=== PATIENT | female | born 2000 | race Two or more races ===

== ENCOUNTER 2021-07-30 22:04 | Emergency (ER) | payer MEDICAID, SELFPAY ==
--- NOTE | ~2021-07-30 | CT_ITS ---
EXAMINATION: CT HEAD WITHOUT CONTRAST CLINICAL INFORMATION: New onset of seizure COMPARISON: None TECHNIQUE: Contiguous axial imaging was performed from the skull base to vertex without intravenous administration of contrast. Coronal and sagittal reformatted images performed at the CT scanner This CT examination was performed using dose optimization techniques as appropriate, variously including the following: *Automated exposure control *Adjustment of mA and/or kV according to patient size (this includes techniques or standardized protocols for targeted exams where dose is matched to indication/reason for exam; i.e. extremities or head) *Use of iterative reconstruction technique DLP: 607 mGy-cm FINDINGS: There is no evidence of acute intracranial hemorrhage or territorial infarction. No abnormal mass effect or midline shift is seen. Marina to white matter differentiation is well preserved. No extra-axial fluid collections are identified. The ventricles are normal in size. There is no abnormal attenuation within the brain parenchyma. The osseous structures and soft tissues are normal. The mastoid air cells and visualized portions of the paranasal sinuses are well aerated. CT/CT head/brain wo con IMPRESSION: No acute intracranial pathology.
[2021-07-30 22:10] VITALS: BP 115/62; PULSE 123; RESP 16; TEMP 37.1; O2SAT 99; BMI 22.8
--- NOTE | 2021-07-30 22:22 | ED_ITS ---
HPI - Syncope General Chief Complaint: Syncope Stated Complaint: SYNCOPE, ?SEIZURE Time Seen by Provider: 07/30/21 22:22 Source: patient and family Limitations: no limitations History of Present Illness HPI narrative: Patient otherwise healthy in no significant past medical history was coming home after watching a movie getting a piggyback ride as she had ankle sprain then she does not remember what happened. According to her friend jenna veliz had a seizure with tonic clonic activity of all 4 extremities clenching of the teeth , eyes uprolled lasted for few seconds patient was incontinent prior to the episode patient was feeling funny blurred vision. Patient does not remember the event was confused when she woke up at this time patient denies any complaints. Patient denies any sleep deprivation no use of drugs no headache was born full-term no recent head injury Related Data Allergies Allergy/AdvReac Type Severity Reaction Status Date / Time No Known Allergies Allergy Unverified 06/20/20 17:25 Review of Systems Review of Systems: Yes all other systems are reviewed and are negative [facility] Social History Social History Advance Directives: No Advance Directives Information Provided: Yes Patient : No Physical Exam Vital Signs: Vital Signs: Last Vital Signs Temp 98.7 F 07/30/21 22:10 Pulse 123 H 07/30/21 22:10 Resp 16 07/30/21 22:10 BP 115/62 07/30/21 22:10 Pulse Ox 99 07/30/21 22:10 Body Mass Index 22.8 Appearance: Alert. Oriented X3. No acute distress. Eyes: PERRLA, No Nystagmus ENT: Pharynx normal. Oral Mucosa moist Neck: Normal inspection. Neck supple. CVS: Normal heart rate and rhythm. Pulses normal. Respiratory: No respiratory distress. Equal air entry bilateral, no wheezing/rales/rhonchi Abdomen: Soft and nontender. Bowel sounds are present, no mass palpable, no CVA tenderness Skin: Skin warm and dry. Normal skin color. Normal skin turgor. Extremities: No lower extremity edema. No calf tenderness Neuro: Oriented X 3. No motor deficit. No sensory deficit.No cerebellar signs , cranial nerves II-XII intact MDM - Syncope MDM Narrative Medical decision making narrative: Patient with new onset tonic clonic seizure etiology unknown workup is negative including CT head. Prolactin level was sent. Patient advised to follow neurology/PCP Lab Data Attestation: I reviewed the patient's lab results. Result diagrams: 07/30/21 22:58 07/30/21 22:58 Labs: Lab Results 07/30/21 07/30/21 07/30/21 Range/Units 22:58 22:58 22:58 WBC 13.9 H (4.8-10.8) X10*3/uL RBC 4.06 L (4.20-5.50) X10*6/uL Hgb 12.2 (12.0-16.0) g/dl Hct 36.7 L (37-47) % MCV 90.4 (80-98) fL MCH 30.0 (27.0-33.0) pg MCHC 33.2 (31.0-35.0) g/dl RDW 12.7 (11.0-16.0) % Plt Count 279 (160-400) X10*3/uL MPV 10.7 (9.4-12.3) fL Immature Gran % (Auto) 0.3 (0.0-0.4) % Neut % (Auto) 77.0 H (45-73) % Lymph % (Auto) 11.8 L (20-40) % [place] % (Auto) 7.6 (2-11) % Eos % (Auto) 2.9 (0-4) % Baso % (Auto) 0.4 (0-2) % Lymph # (Auto) 1.6 (1.2-4.9) X10*3/uL [place] # (Auto) 1.1 (0.1-1.2) X10*3/uL Eos # (Auto) 0.4 (0.0-0.4) X10*3/uL Baso # (Auto) 0.1 (0.0-0.2) X10*3/uL Abs Immat Gran (auto) 0.04 H (0.00-0.03) X10*3/uL Absolute Neuts (auto) 10.7 H (2.0-8.3) X10*3/uL Absolute Nucleated RBC 0.000 (0.0-0.012) X10*3/uL Nucleated RBC % (auto) 0.0 (0.0-0.2) /100WBC Sodium 138 (135-145) mmol/L Potassium 4.1 (3.3-5.1) mmol/L Chloride 109 H (96-108) mmol/L Carbon Dioxide 21 L (22-29) mmol/L Anion Gap 12 (12-20) BUN 10 (9-16) mg/dL Creatinine 0.67 (0.5-1.4) mg/dL Estim Creat Clear Calc 91.3 Estimated GFR > 60 Random Glucose 117 H (60-115) mg/dL Calcium 8.6 (8.4-10.2) mg/dL Urine Color YELLOW Urine Appearance CLEAR Urine pH 6.0 (5.0-8.0) Ur Specific [place] >= 1.030 H (1.005-1.025) Urine Protein TRACE (NEG-TRACE) MG/DL Urine Glucose (UA) NEG (NEG) MG/DL Urine Ketones NEG (NEG) MG/DL Urine Blood NEG (NEG) Urine Nitrite NEG (NEG) Ur Leukocyte Esterase NEG (NEG) Urine Test (NEGATIVE) 07/30/21 Range/Units 22:58 WBC (4.8-10.8) X10*3/uL RBC (4.20-5.50) X10*6/uL Hgb (12.0-16.0) g/dl Hct (37-47) % MCV (80-98) fL MCH (27.0-33.0) pg MCHC (31.0-35.0) g/dl RDW (11.0-16.0) % Plt Count (160-400) X10*3/uL MPV (9.4-12.3) fL Immature Gran % (Auto) (0.0-0.4) % Neut % (Auto) (45-73) % Lymph % (Auto) (20-40) % [place] % (Auto) (2-11) % Eos % (Auto) (0-4) % Baso % (Auto) (0-2) % Lymph # (Auto) (1.2-4.9) X10*3/uL [place] # (Auto) (0.1-1.2) X10*3/uL Eos # (Auto) (0.0-0.4) X10*3/uL Baso # (Auto) (0.0-0.2) X10*3/uL Abs Immat Gran (auto) (0.00-0.03) X10*3/uL Absolute Neuts (auto) (2.0-8.3) X10*3/uL Absolute Nucleated RBC (0.0-0.012) X10*3/uL Nucleated RBC % (auto) (0.0-0.2) /100WBC Sodium (135-145) mmol/L Potassium (3.3-5.1) mmol/L Chloride (96-108) mmol/L Carbon Dioxide (22-29) mmol/L Anion Gap (12-20) BUN (9-16) mg/dL Creatinine (0.5-1.4) mg/dL Estim Creat Clear Calc Estimated GFR Random Glucose (60-115) mg/dL Calcium (8.4-10.2) mg/dL Urine Color Urine Appearance Urine pH (5.0-8.0) Ur Specific [place] (1.005-1.025) Urine Protein (NEG-TRACE) MG/DL Urine Glucose (UA) (NEG) MG/DL Urine Ketones (NEG) MG/DL Urine Blood (NEG) Urine Nitrite (NEG) Ur Leukocyte Esterase (NEG) Urine Test NEGATIVE (NEGATIVE) ECG Data Attestation: I personally reviewed and interpreted this ECG as follows: Interpretation: Sinus tachycardia heart rate 118 beats per minute prabhakar double normal axis no acute ischemic changes Discharge Plan Discharge Clinical Impression: New onset seizure Patient Disposition: Home, Self-Care Instructions: New-Onset Seizure in Adults (ED) Additional Instructions: Avoid sleep deprivation Do not drive until final diagnosis made Cautious as advised Follow-up with neurologist/PCP for further evaluation and treatment Referrals: Manjinder Copeland MD [Physician] - 2 days
--- NOTE | 2021-07-30 22:32 | ECG_ITS ---
Test Reason : SYNCOPE Blood Pressure : / mmHG Vent. Rate : 118 BPM Atrial Rate : 118 BPM P-R Int : 210 ms QRS Dur : 074 ms QT Int : 288 ms P-R-T Axes : 057 058 034 degrees QTc Int : 403 ms Sinus tachycardia with 1st degree A-V block Possible Left atrial enlargement RSR' or QR pattern in V1 suggests right ventricular conduction delay Nonspecific ST abnormality Inferior leads Abnormal ECG No previous ECGs available Referred By: Nicola Palomares Electronically Signed By:NEGRITO LLOYD MD
[2021-07-30 23:01] VITALS: PULSE 117
[2021-07-30 23:03] LABS: MANUAL DIFF FLAG NO
[2021-07-30 23:04] LABS: Basophils Absolute Auto 0.1 X10*3/uL (0.0-0.2); Basophils Percent Auto 0.4 % (0-2); Eosinophils Absolute Auto 0.4 X10*3/uL (0.0-0.4); Eosinophils Percent Auto 2.9 % (0-4); Hematocrit 36.7 % (37-47); Hemoglobin 12.2 g/dl (12.0-16.0); Imm Gran Abs Auto 0.04 X10*3/uL (0.00-0.03); Imm Gran Pct Auto 0.3 % (0.0-0.4); Lymphocytes Absolute Auto 1.6 X10*3/uL (1.2-4.9); Lymphocytes Percent Auto 11.8 % (20-40); Mean Corpuscular HGB Conc 33.2 g/dl (31.0-35.0); Mean Corpuscular Volume 90.4 fL (80-98); Mean Platelet Volume 10.7 fL (9.4-12.3); Monocytes Absolute Auto 1.1 X10*3/uL (0.1-1.2); Monocytes Percent Auto 7.6 % (2-11); Neutrophils Absolute Auto 10.7 X10*3/uL (2.0-8.3); Platelet Count 279 X10*3/uL (160-400); Red Blood Count 4.06 X10*6/uL (4.20-5.50); Red Cell Distribution Width 12.7 % (11.0-16.0); White Blood Count 13.9 X10*3/uL (4.8-10.8)
[2021-07-30 23:05] LABS: Appearance Urine CLEAR; Color Urine YELLOW; Glucose Urine UA NEG (NEG); Leukocyte Esterase Urine NEG (NEG); Nitrite Urine NEG (NEG); Specific Gravity - Urine >= 1.030 (1.005-1.025); Urine Blood NEG (NEG); Urine Ketones NEG (NEG); Urine Protein TRACE MG/DL (NEG-TRACE)
[2021-07-30 23:07] LABS: UPreg QC Valid YES; Urine Pregnancy NEGATIVE (NEGATIVE)
[2021-07-30 23:08] LABS: UACC Culture Trigger NO
[2021-07-30 23:21] LABS: Anion Gap 12 (12-20); Blood Urea Nitrogen 10 mg/dL (9-16); Calcium 8.6 mg/dL (8.4-10.2); Carbon Dioxide 21 mmol/L (22-29); Chloride 109 mmol/L (96-108); Creatinine Clr Calc Pharmacy 91.3; Estimated Glomerular Filt Rate > 60; Glucose Random 117 mg/dL (60-115); Potassium 4.1 mmol/L (3.3-5.1); Sodium 138 mmol/L (135-145)
[2021-07-30 23:51] VITALS: BP 95/51; PULSE 82; RESP 18; TEMP 36.8; O2SAT 99
[2021-08-02 02:02] LABS: Prolactin 36.6 ng/mL
== END 2021-07-30 23:55 | disposition home or self-care (01) ==
PROVIDERS: Emergency Provider Internal Medicine
DX: R56.9 Unspecified convulsions (principal)
CPT/HCPCS: 36415; 70450; 80048; 81003; 81025; 84146; 85025; 93005; 99284

== ENCOUNTER → 2021-10-24 12:58 | Outpatient (REF) | payer MEDICAID, SELFPAY ==
--- NOTE | 2021-10-24 13:02 | ECG_ITS ---
Hook-up date: 2021-10-24 13:12:00 Duration: 47:59:00 Test Indications: TACHYCARDIA Medications: 074371 QRS complexes 3 Ventricular ectopics which represent <1 % of total QRS comp. * Supraventricular ectopics which represent % of total QRS comp. * Paced QRS complexs which represent % of total QRS comp. VENTRICULAR ECTOPY 3 Isolated 0 Bigeminal Cycles 0 Couplets 0 Runs 0 Beats in Runs * Beats LONGEST at * BPM at :: -- * Beats FASTEST at * BPM at :: -- SUPRAVENTRICULAR ECTOPY * Isolated * Couplets * Runs * Beats in Runs * Beats LONGEST at * BPM at :: -- * Beats FASTEST at * BPM at :: -- HEART RATES 47 MIN at 02:39:05 2021-10-25 85 AVG 189 MAX at 22:09:35 2021-10-25 LONGEST RR 1.3840 secs at 06:14:47 2021-10-25 S-T LEVELS Channel 1 - 128 mm at 13:12:00 2021-10-24 - 128 mm at 13:12:00 2021-10-24 Channel 2 - 128 mm at 13:12:00 2021-10-24 - 128 mm at 13:12:00 2021-10-24 Channel 3 - 128 mm at 03:23:11 -- - 128 mm at 03:23:11 Underlying rhythm is sinus; Average ventricular rate 85/min; rate 47-189/min; About 25% of the time, rate >100/min; Very rare PVCs (3 over 48hrs); Patient did not report any symptoms in the diary Referred By: Manjinder Copeland Overread By: JACQUELYN BARRETO
== END ==
LOC: HO.CARD 12:58
PROVIDERS: PCP Nurse Practitioner; Visit Provider Psychiatry & Neurology Neurology
DX: R00.0 Tachycardia, unspecified (principal)
CPT/HCPCS: 93226

== ENCOUNTER 2021-10-30 11:21 | Outpatient (REF) | payer MEDICAID, SELFPAY ==
--- NOTE | ~2021-10-30 | MR_ITS ---
EXAMINATION: MR BRAIN WITHOUT AND WITH CONTRAST CLINICAL INFORMATION: Generalized seizure disorder. COMPARISON: CT head 07/30/2021. TECHNIQUE: Multiplanar, multisequence seizure protocol MRI of the brain was obtained before and after the intravenous administration of 5 mL Gadavist. FINDINGS: No intracranial hemorrhage, tumors or infarcts are noted. The ventricles and sulci are normal in size and configuration. No focal parenchymal lesions of the brain or abnormal extra-axial fluid collections are identified. No findings suspicious for neuronal migrational abnormalities are identified. No heterotopic damico matter or areas of cortical dysplasia are visualized. The hippocampal formations are normal in appearance. Susceptibility weighted images reveal no evidence of acute or chronic hemorrhage within the brain parenchyma. Normal flow-related signal intensity is visualized in the major intrarenal vessels and dural sinuses. The orbits and globes are normal in appearance making allowances for expected artifacts. The craniocervical junction cerebellar tonsils are normal in configuration. No suspicious marrow abnormalities identified. The brainstem, cerebellar vermis, corpus callosum, pituitary, visualized optic chiasm and septum pellucidum are normal in appearance. No abnormal enhancement of the brain is visualized. MR/MR head/brain wo/w con IMPRESSION: Normal unenhanced and IV contrast-enhanced seizure protocol MRI of the brain.
== END 2021-10-30 11:22 | disposition home or self-care (01) ==
LOC: HO.MRI 11:21
PROVIDERS: Visit Provider Nurse Practitioner
DX: G40.309 Generalized idiopathic epilepsy and epileptic syndromes, not intractable, without status epilepticus (principal)
CPT/HCPCS: 70553; A9585